=== PATIENT | female | born 1995 | race Caucasian/White ===

== ENCOUNTER 2020-06-28 21:17 | Emergency (ER) | payer BC ==
[~2020-06-28] VITALS: Ht 170.2 cm; Wt 104.3 kg
[2020-06-28 22:40] LABS: URINE BILIRUBIN NEGATIVE (Negative); URINE BLOOD NEGATIVE (Negative); URINE CLARITY CLEAR; URINE COLOR YELLOW; URINE GLUCOSE-RANDOM* NEGATIVE (Negative); URINE KETONES NEGATIVE (Negative); URINE LEUKOCYTES-REFLEX TRACE (Negative); URINE NITRITE-REFLEX NEGATIVE (Negative); URINE PROTEIN (DIPSTICK) NEGATIVE (Negative); URINE SPECIFIC GRAVITY 1.025 (1.005-1.035); URINE UROBILINOGEN 0.2 E.U./dl (0.2-1.0)
[2020-06-28 22:41] LABS: BASOPHILS 0.4 % (0.0-2.0); HEMATOCRIT 40.5 % (37.0-47.0); HEMOGLOBIN 13.4 gm/dL (12.0-15.0); MCH 28.3 pg (26.0-34.0); MCHC 33.1 g/dL (28.0-37.0); MCV 85.4 fL (80.0-100.0); PLATELET COUNT 295 thou/uL (150-400); POLYS 53.6 % (36.0-66.0); RBC 4.75 mil/uL (4.20-5.00); RDW 13.5 % (10.5-14.5); WBC 7.5 thou/uL (4.0-11.0)
[2020-06-28] MEDS ORDERED: DEXILANT60 MG PO (22:48)
[2020-06-28] MEDS ORDERED: BENTYL 10 MG CA10 M1 PO (22:49)
[2020-06-28 22:50] LABS: ANION GAP 8 mmol/L (7-16); BUN 7 mg/dL (7-18); CALCIUM 9.2 mg/dL (8.5-10.1); CHLORIDE 102 mmol/L (98-107); CO2 26 mmol/L (21-32); GLUCOSE 93 mg/dL (74-106); POTASSIUM 3.4 mmol/L (3.5-5.1); SODIUM 136 mmol/L (136-145)
[2020-06-28] MEDS ORDERED: INDERAL LA120 M1 PO (22:50)
[2020-06-28] MEDS ORDERED: METHOCARBAMOL500 M2 PO (22:50)
[2020-06-28] MEDS ORDERED: DIAZEPAM 5 MG5 M1 PO (22:51)
[2020-06-28] MEDS ORDERED: ZOFRAN ODT4 MG PO (22:52)
[2020-06-28] MEDS ORDERED: NABUMETONE 750750 M1 PO (22:52)
[2020-06-28] MEDS ORDERED: BUPROPION XL300 MG PO (22:53)
[2020-06-28] MEDS ORDERED: NARATRIPTAN HC2.5 MG PO (22:53)
[2020-06-28] MEDS ORDERED: NF PO (22:55)
[2020-06-28] MEDS ORDERED: CLARITIN10 M3 PO (22:56)
[2020-06-28] MEDS ORDERED: PHENERGAN 25 MG25 MG PO (22:59)
[2020-06-28 23:00] LABS: ALBUMIN 4.1 g/dL (3.4-5.0); DIRECT BILIRUBIN 0.1 mg/dL (<0.1-0.2); MAGNESIUM 1.7 mg/dL (1.8-2.4); SGOT 20 U/L (15-37); SGPT 35 U/L (30-65); TOTAL BILIRUBIN 0.5 mg/dL (0.2-1.0); TOTAL PROTEIN 7.5 g/dL (6.4-8.2); TROPONIN-I <0.06 ng/mL (<0.06)
[2020-06-28] MEDS ORDERED: METHYLPHENIDATE20 M1 PO (23:00)
[2020-06-28] MEDS ORDERED: EMGALITY120 MG/1 M SUBQ (23:01)
[2020-06-28] MEDS ORDERED: FLONASE 0.05%50 MCG NARES (23:02)
[2020-06-29] MEDS ORDERED: ATIVAN1 M1 PO (00:50)
[2020-06-29 00:52] VITALS: BP 132/85
--- NOTE | 2020-06-30 14:05 | EKG ---
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 : 1995 Requested By: Sonido Rogers Order Number: [id number] MD: Raymond Winston Measurements Intervals [place] Rate: 125 P: 51 [place]: 151 QRS: 28 QRSD: 84 T: -4 QT: 302 QTc: 436 Interpretive Statements Sinus tachycardia RSR' in V1 or V2, probably normal variant Borderline T wave abnormalities Baseline wander in lead(s) V3,V5 No previous ECG available for comparison Electronically Signed On 06-30-2020 14:05:01 [employer] by Raymond Winston [email or web address] <ELECTRONICALLY SIGNED> By: Raymond Winston MD, [facility] 06/30/20 1405 35 35 Raymond Winston MD, [facility] /EPI
== END 2020-06-29 00:57 | disposition home or self-care (01) ==
LOC: ER 21:17
PROVIDERS: Emergency Medicine
DX: R00.0 Tachycardia, unspecified (principal); E87.6 Hypokalemia; F43.0 Acute stress reaction; F41.8 Other specified anxiety disorders; K21.9 Gastro-esophageal reflux disease without esophagitis; Z79.899 Other long term (current) drug therapy; Z88.1 Allergy status to other antibiotic agents